=== PATIENT | male | born 1995 | race Two or more races ===

== ENCOUNTER → 2019-04-30 | Outpatient (CLI) | payer BC ==
[~2019-04-30] MED LIST: AMOX-559 PO; FLU60VIA41 IM; FLUT16SP19 NS; METH4TAB66 PO; MONT10TA PO; SULF-198 PO
== END ==
LOC: RESP 01:53
PROVIDERS: ATTEND Internal Medicine
DX: G47.33 Obstructive sleep apnea (adult) (pediatric) (principal)